=== PATIENT | male | born 1965 | race Caucasian/White ===

== ENCOUNTER 2021-03-16 16:52 | Emergency (ER) | payer BC ==
--- NOTE | 2021-03-16 17:15 | EDM.PDOC ---
ED HPI GENERAL MEDICAL PROBLEM - General Chief Complaint: Upper Extremity Injury/Pain Stated Complaint: BROKEN/INJURED RIGHT WRIST Time Seen by Provider: 03/16/21 17:12 Source of Information: Reports: Patient History Limitations: Reports: No Limitations - History of Present Illness INITIAL COMMENTS - FREE TEXT/NARRATIVE: 55 y/o M was out ice fishing and slipped on the ice. He reports his legs went out from under him and he fell onto his foustrched R hand. No LOC. Pt got up immediately and noticed swelling to his R wrist. States no med hx, meds, allergies. Denies other injury, sob, cp, back pn, pelvic pn, ext pain, drugs, etoh. Right Wrist Pain Score (Numeric/FACES): 4 - Related Data Allergies Allergy/AdvReac Type Severity Reaction Status Date / Time No Known Allergies Allergy Verified 03/16/21 17:07 Home Meds: Home Meds . [No Known Home Meds] 03/16/21 [History] Review of Systems - Review of Systems Review Of Systems: Comprehensive ROS is negative, except as noted in HPI. ED EXAM, GENERAL - Physical Exam Exam: See Below Exam Limited By: No Limitations General Appearance: Alert, No Apparent Distress Respiratory/Chest: No Respiratory Distress, Lungs Clear, Normal Breath Sounds, No Accessory Muscle Use, Chest Non-Tender Cardiovascular: Normal Peripheral Pulses, Regular Rate, Rhythm, No Edema, No Gallop, No JVD, No Murmur, No Rub Extremities: Other (R wrist swollen and painful to palpation. No palpable creptius. No angualtion. Radial pulse intact. CMS in R hand and fingers intact. ) Neurological: Alert, Oriented, CN II-XII Intact, Normal Cognition, Normal Gait, Normal Reflexes, No Motor/Sensory Deficits Psychiatric: Normal Affect, Normal Mood Skin Exam: Warm, Dry, Intact Course - Vital Signs Last Recorded V/S: Last Vital Signs Temp 97.6 F 03/16/21 17:07 Pulse 82 03/16/21 17:07 Resp 18 03/16/21 17:07 BP 121/85 03/16/21 17:07 Pulse Ox 96 03/16/21 17:07 - Orders/Labs/Meds Orders: Active Orders 24 hr Category Date Time Status Wrist 2V Rt [CR] Urgent Exams 03/16/21 16:54 Taken Departure - Departure Time of Disposition: 18:00 Disposition: Home, Self-Care 01 Condition: Fair Clinical Impression: Radial head fracture Qualifiers: Encounter type: initial encounter Fracture type: closed Fracture alignment: nondisplaced Laterality: right Qualified Code(s): S52.124A - Nondisplaced fracture of head of right radius, initial encounter for closed fracture - Discharge Information *PRESCRIPTION DRUG MONITORING PROGRAM REVIEWED*: Not Applicable *COPY OF PRESCRIPTION DRUG MONITORING REPORT IN PATIENT TRACEY: Not Applicable Instructions: Radial Head Fracture, [id number] Referrals: PCP,None [Primary Care Provider] - Forms: ED Department Discharge Additional Instructions: Ice and rest your fracture. Use tylenol and ibuprofen for pain. Contact [facility] in the morning to schedule an appointment to have your fracture evaluated. If any new symptoms or concerns develop contact your primary care facility or return to the ER. Sepsis Event Note (ED) - Focused Exam Vital Signs: Vital Signs Temp Pulse Resp BP Pulse Ox 03/16/21 17:07 97.6 F 82 18 121/85 96 - My Orders Last 24 Hours: My Active Orders 03/16/21 16:54 Wrist 2V Rt [CR] Urgent - Assessment/Plan Last 24 Hours: My Active Orders 03/16/21 16:54 Wrist 2V Rt [CR] Urgent
--- NOTE | 2021-03-16 18:54 | CR ---
PROCEDURE INFORMATION: Exam: XR Right Wrist Exam date and time: 03/16/2021 5:14 PM Age: 55 years old Clinical indication: Other: Fall; Additional info: R wrist pain TECHNIQUE: Imaging protocol: XR Right wrist. Views: 1 or 2 views. COMPARISON: No relevant prior studies available. FINDINGS: Bones/joints: There is a nondisplaced slightly comminuted transverse fracture through the distal radial metaphysis. There is a nondisplaced transverse fracture of the midportion of the ulnar styloid process. No additional fracture seen. Soft tissues: Diffuse soft tissue swelling about the wrist. IMPRESSION: Nondisplaced distal radial and ulnar fractures as described
== END 2021-03-16 18:10 | disposition home or self-care (01) ==
LOC: DL.ED 16:52
DX: S52.124A Nondisplaced fracture of head of right radius, initial encounter for closed fracture (principal); W00.0XXA Fall on same level due to ice and snow, initial encounter
CPT/HCPCS: 73100-RT; 99283

== ENCOUNTER 2022-12-14 06:38 | Day surgery (SDC) | payer BC ==
[~2022-12-14 06:38] MED LIST: Dextrose 5%-0.45% NaCl 1,000 ML IV SCH
[2022-12-14] MEDS ORDERED: fentaNYL 100 MCG/2 ML SDV IV ONE ×4 (06:39→07:42)
[2022-12-14] MEDS ORDERED: Midazolam 1 MG/ML 2 ML SDV IV ONE ×7 (06:39→07:41)
[2022-12-14] MEDS ORDERED: Midazolam 1 MG/ML 2 ML SDV ONE (06:54)
[2022-12-14] MEDS ORDERED: fentaNYL 100 MCG/2 ML SDV ONE (06:54)
== END 2022-12-14 09:06 | disposition home or self-care (01) ==
LOC: DL.ENDO 06:38
PROVIDERS: ATTEND Internal Medicine Gastroenterology
DX: Z12.11 Encounter for screening for malignant neoplasm of colon (principal); K64.8 Other hemorrhoids; E78.1 Pure hyperglyceridemia; Z98.890 Other specified postprocedural states
CPT/HCPCS: J2250; J3010; J7042